=== PATIENT | female | born 1980 | race Caucasian/White ===

== ENCOUNTER 2018-04-18 05:15 | Day surgery (SDC) | payer OTHER ==
[~2018-04-18] VITALS: Ht 160 cm; Wt 90.7 kg
[~2018-04-18 05:15] MED LIST: BCP; IMITREX100 MG PO; K-DUR10 MEQ PO; NUVIGIL250 MG PO
[2018-04-18 06:02] VITALS: BP 107/68
[2018-04-18] MEDS ORDERED: NORCO 5/3251 TABLET PO (08:35)
[2018-04-18 11:14] VITALS: BP 103/69
[2018-04-18 12:13] VITALS: BP 92/46
[2018-04-18 12:47] VITALS: BP 98/55
[2018-04-18 14:48] VITALS: BP 113/67
== END 2018-04-18 14:50 | disposition home or self-care (01) ==
LOC: SDC
DX: K64.8 Other hemorrhoids (principal); K64.4 Residual hemorrhoidal skin tags; E78.00 Pure hypercholesterolemia, unspecified; K21.9 Gastro-esophageal reflux disease without esophagitis; E66.9 Obesity, unspecified; Z68.35 Body mass index [BMI] 35.0-35.9, adult; Z87.891 Personal history of nicotine dependence
CPT/HCPCS: 88304; J1100; J2250; J2405; J3010; S0020; S0074